=== PATIENT | female | born 1950 ===

== ENCOUNTER 2017-11-24 08:00 | Outpatient (CLI) | payer OTHER ==
[~2017-11-24] VITALS: Ht 121.9 cm; Wt 76.2 kg
== END 2017-11-24 08:15 | disposition home or self-care (01) ==
LOC: OFIC 805 08:00
DX: H93.11 Tinnitus, right ear (principal)

== ENCOUNTER → 2017-11-24 | Outpatient (CLI) | payer OTHER ==
[~2017-11-24] MED LIST: ALTACE1.25 M1; FLEXERIL5 MG; GLUCOVANCE 1.251 TAB PO; INTESTINEX1 CAP PO; JANUVIA50 MG; KLONOPIN0.5 MG/TAB; POLYETHYLENE GL90 GM; PROTONIX20 MG; SKELAXIN400 MG; XANAX0.25 MG PO
== END | disposition home or self-care (01) ==
LOC: MRI 11:38
DX: H93.11 Tinnitus, right ear (principal)
CPT/HCPCS: 70551

== ENCOUNTER 2018-01-12 09:32 | Outpatient (CLI) | payer OTHER ==
[~2018-01-12] VITALS: Ht 121.9 cm; Wt 77.1 kg
== END 2018-01-12 09:40 | disposition home or self-care (01) ==
LOC: OFIC 805 09:32
DX: H93.11 Tinnitus, right ear (principal)

== ENCOUNTER 2019-06-18 08:05 | Emergency (ER) | payer OTHER ==
[~2019-06-18] VITALS: Ht 147.3 cm; Wt 65.8 kg
[2019-06-18] MEDS ORDERED: HUMALOG MI100 UNIT/2 (08:27)
[2019-06-18] MEDS ORDERED: ASPIR-LOW81 MG (08:27)
[2019-06-18] MEDS ORDERED: ATORVASTATIN CA40 MG (08:28)
[2019-06-18] MEDS ORDERED: SYNTHROID112 MCG (08:28)
== END 2019-06-18 11:04 | disposition home or self-care (01) ==
LOC: ER 08:05
DX: M54.89 Other dorsalgia (principal); R07.89 Other chest pain; S20.211S Contusion of right front wall of thorax, sequela; W18.09XS Striking against other object with subsequent fall, sequela

== ENCOUNTER 2019-06-28 07:14 | Outpatient (CLI) | payer OTHER ==
[~2019-06-28 07:14] MED LIST changes: +ASPIR-LOW81 MG; +ATORVASTATIN CA40 MG; +HUMALOG MI100 UNIT/2; +SYNTHROID112 MCG
== END 2019-06-28 13:26 | disposition home or self-care (01) ==
LOC: TOM 07:14
DX: K63.5 Polyp of colon (principal); K59.01 Slow transit constipation

== ENCOUNTER → 2021-01-12 08:55 | Outpatient (CLI) | payer OTHER | END | disposition home or self-care (01) | LOC: LAB 08:55 | PROVIDERS: ATTEND Internal Medicine Gastroenterology | DX: R13.14 Dysphagia, pharyngoesophageal phase (principal); R10.10 Upper abdominal pain, unspecified; K44.9 Diaphragmatic hernia without obstruction or gangrene ==

== ENCOUNTER 2021-01-21 09:08 | Outpatient (CLI) | payer OTHER | END 2021-01-21 09:16 | disposition home or self-care (01) | LOC: RAD 09:08 | PROVIDERS: ATTEND Internal Medicine Gastroenterology | DX: K44.9 Diaphragmatic hernia without obstruction or gangrene (principal); E04.2 Nontoxic multinodular goiter; R13.14 Dysphagia, pharyngoesophageal phase; E11.65 Type 2 diabetes mellitus with hyperglycemia; M34.89 Other systemic sclerosis; I73.89 Other specified peripheral vascular diseases; C73 Malignant neoplasm of thyroid gland ==